=== PATIENT | female | born 1955 | race Caucasian/White ===

== ENCOUNTER → 2019-04-09 | Day surgery (SDC) | payer OTHER ==
--- NOTE | 2019-04-14 11:11 | PATH ---
Surgical Pathology Report Patient Name: [facility]. Rec. #: [id number] /Age/Gender: 1955 (Age: 64) / F Account: [id number] Location: Taken: 04/09/2019 Received: 04/09/2019 Reported: 04/14/2019 Physicians: Darlyn Freeman M.D. Specimen(s) Received A: RIGHT BREAST 11-12:00 RETRO CORE BIOPSY B: RIGHT AXILLARY LN CORE BIOPSY Clinical History Right breast 11-12 retro core biopsy Right axillary lymph node core biopsy Final Diagnosis A.. BREAST, RIGHT, 11-12:00 RETRO, SITE #1, CORE BIOPSY: INVASIVE DUCTAL CARCINOMA, POORLY DIFFERENTIATED, MEASURING AT LEAST 6 MM IN GREATEST DIMENSION. IN THIS MATERIAL. FOCAL DUCTAL CARCINOMA IN SITU (DCIS), SOLID TYPE, INTERMEDIATE NUCLEAR GRADE. B. AXILLARY LYMPH NODE, RIGHT, SITE #2, CORE BIOPSY: METASTATIC CARCINOMA, INVOLVING LYMPH NODE. Results of ER and ME studies performed on block A at [facility] are as follows: ER (clone [id number] mouse monoclonal antibody by [employer]): > 95 % nuclear staining with strong intensity (positive). ME (clone16 mouse monoclonal antibody by [employer]):1-2 % nuclear staining with moderate intensity (low positive). Results of Her2 (IHC) & Ki-67 studies performed on block A at [place], [place] ([id number] ) are as follows: Her2 IHC (EP3 from [employer], formerly known as [id number], using [employer] Polymer Refine detection kit):1+ (negative). Ki-67: ~40% (high proliferative index). Comment: Case discussed with on 04/13/19. Positive and negative controls (internal if applicable) show appropriate results. Electronically Signed Meghann Renee M.D. Gross Description A. received in formalin, labeled "right breast, 11-12 retro site #1" are five cores of light nina, yellow-nina, tissue, ranging from 0.5-1.0 cm in length with a diameter of 0.1 cm. Entirely submitted in one cassette. B. received in formalin, labeled "right axilla, biopsy site #2 " is a 1.7 x 1.3 x 0.2 cm aggregate of yellow-nina and light nina tissue admixed with blood clot. Entirely submitted in one cassette. Time to formalin fixation: 2 minutes Total formalin fixation time: Approximately 6 hours __ AE/04/09/2019 ebram/04/09/2019
== END | disposition home or self-care (01) ==
LOC: FRADUS-SUR 12:50
PROVIDERS: ATTEND Internal Medicine
PROC: 0HBU3ZX Excision of Left Breast, Percutaneous Approach, Diagnostic (ICD-10-PCS; principal; 2019-04-09)
PROC: 07B53ZX Excision of Right Axillary Lymphatic, Percutaneous Approach, Diagnostic (ICD-10-PCS; 2019-04-09)
PROC: BH47ZZZ Ultrasonography of Upper Extremity (ICD-10-PCS; 2019-04-09)
DX: C50.411 Malignant neoplasm of upper-outer quadrant of right female breast (principal); C77.3 Secondary and unspecified malignant neoplasm of axilla and upper limb lymph nodes; Z17.0 Estrogen receptor positive status [ER+]; N63.11 Unspecified lump in the right breast, upper outer quadrant; R59.9 Enlarged lymph nodes, unspecified
CPT/HCPCS: 19083; 76942-TC; 77065-TC; 87899; 88305-TC; 88342-TC; A4648

== ENCOUNTER 2019-06-10 09:09 | Day surgery (SDC) | payer OTHER ==
--- NOTE | 2019-06-07 13:55 | HP ---
Admitting History and Physical - Primary Care Physician PCP: William Ta - Admission Chief Complaint: right breast cancer History of Present Illness: Patient is a 64 yo female noted to have right retroareolar 2.9 cm mass as well as suspicious right axillary lymph nodes. The patient underwent a core bx 04/09 which was c/w invasive ductal ca/DCIS and positive metastatic axillary LN. The patient will require neoadjuvant chemo and is now presenting for insertion of port. History Source: Patient Limitations to Obtaining History: No Limitations - Past Medical History Psych: Yes: Depression Additional Past Medical History: h/o morbid obesity - Past Surgical History Past Surgical History: Yes: Breast Biopsy (left core bx (2008) left exc bx x 2 ( more then 30 yrs ago-benign)) Home Medications - Allergies Allergies/Adverse Reactions: Allergies Allergy/AdvReac Type Severity Reaction Status Date / Time Penicillins Allergy Mild unknown Unverified 09/08/12 17:38 - Home Medications Home Medications: Ambulatory Orders Multivitamin [Chewable-Isaac] 1 each PO DAILY 09/28/12 Cholecalciferol (Vitamin D3) [Vitamin D] 1,000 unit PO DAILY capsule 11/30/13 Cyanocobalamin (Vitamin B-12) [Vitamin B-12] 1,000 mcg PO DAILY tablet Family Medical History Family Hx Cancer: Mother (vaginal cancer) Other Family History: maternal sec cousin (breast cancer 50s) Review of Systems - Review of Systems Constitutional: reports: Other (fatigue) Physical Examination Constitutional: Yes: Well Nourished, Calm Breast(s): Yes: Other (Ptotic C-cup breasts with slight right nipple retraction. Right breast retroareolar mass noted on palpation which is approx 2.5 cm. No suspicious palpable axillary or any other adenopthy noted on exam.) Problem List - Problems (1) Breast cancer, right Code(s): C50.911 - MALIGNANT NEOPLASM OF UNSP SITE OF RIGHT FEMALE BREAST Qualifiers: Breast location: central portion of breast Estrogen receptor status: positive Patient sex: female Qualified Code(s): C50.111 - Malignant neoplasm of central portion of right female breast; Z17.0 - Estrogen receptor positive status [ER+] (2) Carcinoma of right breast metastatic to axillary lymph node Code(s): C50.911 - MALIGNANT NEOPLASM OF UNSP SITE OF RIGHT FEMALE BREAST; C77.3 - SEC AND UNSP MALIG NEOPLASM OF AXILLA AND UPPER LIMB NODES Assessment/Plan insertion of infusaport
[2019-06-08 17:29] VITALS: BMI 34.0
[2019-06-10] MEDS ORDERED: LIDOCAINE HCL 1%, 10 MG/ML (20ML VIAL) ONE (09:54)
[2019-06-10] MEDS ORDERED: KETOROLAC TROMETHAMINE 30 MG/1 ML VIAL IVPUSH PRN (11:43)
[2019-06-10] MEDS ORDERED: ONDANSETRON 4 MG/2 ML VIAL IVPUSH PRN ×2 (11:43→13:15)
[2019-06-10] MEDS ORDERED: DEXTROSE 5%-0.45% SALINE 1,000 ML IV SCH (11:45)
[2019-06-10] MEDS ORDERED: MIDAZOLAM HCL 2 MG/2 ML SINGLE DOSE VIAL ONE ×2 (11:47→12:14)
[2019-06-10] MEDS ORDERED: ceFAZolin SODIUM 1 GM VIAL ONE ×2 (12:12)
[2019-06-10] MEDS ORDERED: PROPOFOL 20 ML ONE (12:17)
[2019-06-10] MEDS ORDERED: LIDOCAINE HCL 1%, 10 MG/ML (20ML VIAL) INF ONE (12:52)
[2019-06-10] MEDS ORDERED: PROMETHAZINE HCL 25 MG/1 ML VIAL IVPUSH PRN (13:15)
[2019-06-10] MEDS ORDERED: oxyCODONE HCL 5 MG TABLET PO PRN ×2 (13:15)
[2019-06-10 14:38] VITALS: TEMP 97.7
[2019-06-10 15:04] VITALS: BP 134/72; PULSE 71
--- NOTE | 2019-06-10 15:37 | OP ---
DATE OF OPERATION: 06/10/2019 PREOPERATIVE DIAGNOSIS: Right breast cancer central location. POSTOPERATIVE DIAGNOSIS: Right breast cancer central location. PROCEDURE: Left-sided single-lumen Port-A-Cath placement under fluoroscopy for intravenous chemotherapy. PRIMARY SURGEON: Arely Long MD GOLD LEAF GILDER: BHUPENDRA Coronado COMPLICATIONS: There are no complications. INDICATIONS: Briefly, the patient is a 64-year-old nulliparous premenopausal female with [place], [place] descent. She has had some previous left breast biopsies, which have been benign. She underwent a mammography in March 2019, showing a central right breast retroareolar mass measuring about 2.9 cm confirmed to be about 2.8 cm on ultrasound with a suspicious lymph node. She underwent a right breast ultrasound-guided core biopsy and axillary lymph node biopsy on April 09, 2019, which showed a poorly differentiated invasive duct cancer, which was ER positive, MS weakly, HER2 negative with a Ki-67 of 40%. The patient also had a positive axillary lymph node. She was seen by medical oncology, and neoadjuvant chemotherapy was recommended. She started chemotherapy but requires a Port-A-Cath for IV access. The patient was brought in to [facility] through ambulatory surgery on June 10, 2019. In the holding area, site verification was made, and informed consent was obtained. She was brought into the operating room and laid on the OR table in a supine position. Venodynes were placed on the lower extremities. She received a gram of Ancef prior to incision. The patient was given IV sedation and had a rolled sheet placed under her midline spine. Her left arm was tucked at her side. The upper left chest wall was sterilely prepped and draped in the usual fashion. Time-out was performed. Once the patient was properly anesthetized, 1% lidocaine was given directly underneath the left clavicle. Intraoperative ultrasound was used, and the left subclavian vein was easily seen and was cannulated using the Seldinger technique under ultrasound guidance. The wire was placed into the left subclavian vein and into the superior vena cava under fluoroscopy. At this point, the infraclavicular pocket was fashioned by making about a 3-cm incision underneath the left clavicle, and an infraclavicular pocket was made using electrocautery for hemostasis. The catheter was cut to the appropriate length and attached to the Port-A-Cath chamber, and the chamber was placed into the infraclavicular pocket and secured in place using 2 separate 3-0 Prolene sutures. At this point, the Tear-Away sheath introduced with a dilator was placed over the wire under fluoroscopy into the superior vena cava, and the wire and the dilator were removed. The catheter was further down to the Tear-Away sheath, and the Tear-Away sheath was torn away leaving the catheter in good position in the superior vena cava. It had excellent blood return and was flushed with about 5 mL of dilute heparin at 10 units/mL. At this point, the Port-A-Cath chamber was accessed using a Silva needle, and 2 mL of concentrated heparin at 1000 units/mL were instilled into the Port-A-Cath chamber. The wound was then closed using interrupted 3-0 deep dermal Vicryl suture and a running, 4-0 subcuticular Biosyn suture. Mastisol and Steri-Strips were applied over the wound. Compressive dressing placed over this. The patient tolerated the procedure well without difficulty and was awake and alert and brought to the post anesthesia care unit postoperatively. Postoperative chest x-ray was performed, and the line may be used as soon as needed. The patient will be discharged home the same day once discharge criteria are met. All sponge and needle counts were correct at the end of the case, and estimated blood loss was minimal. ARELY LONG M.D. [id number]
== END 2019-06-10 15:07 | disposition home or self-care (01) ==
LOC: FASU 09:09
PROVIDERS: ATTEND Surgery Surgical Oncology
PROC: B518YZA Fluoroscopy of Superior Vena Cava using Other Contrast, Guidance (ICD-10-PCS; 2019-06-10)
PROC: 02HV33Z Insertion of Infusion Device into Superior Vena Cava, Percutaneous Approach (ICD-10-PCS; principal; 2019-06-10 12:14)
DX: C50.111 Malignant neoplasm of central portion of right female breast (principal); C77.3 Secondary and unspecified malignant neoplasm of axilla and upper limb lymph nodes; Z17.0 Estrogen receptor positive status [ER+]; Z80.3 Family history of malignant neoplasm of breast
CPT/HCPCS: 36561; 77001; C1788; 71045-TC-FY; 94760; J1644

== ENCOUNTER 2020-06-21 07:13 | Day surgery (SDC) | payer OTHER ==
[2020-06-19 11:14] VITALS: BMI 31.7
[2020-06-21] MEDS ORDERED: PHENYLEPHRINE 2.5% OPHTH SOLN 15 ML BOTTLE ONE (07:20)
[2020-06-21] MEDS ORDERED: TROPICAMIDE 1% OPHTH SOLN 15 ML BOTTLE ONE (07:20)
[2020-06-21] MEDS ORDERED: CYCLOPENTOLATE 2% OPHTH SOLN 2 ML BOTTLE ONE (07:20)
[2020-06-21] MEDS ORDERED: CIPROFLOXACIN 0.3% EYE DROPS 5 ML BOTTLE ONE (07:20)
[2020-06-21] MEDS ORDERED: LIDOCAINE 1% P/F 10 MG/ML VIAL ONE (07:21)
[2020-06-21] MEDS ORDERED: TETRACAINE 0.5% OPHTH SOLN 2 ML BOTTLE ONE ×2 (07:21→09:11)
[2020-06-21] MEDS ORDERED: NEO/POLYMYX B SULF/DEXAMETH OPHTHALMIC 5ML BOTTLE ONE (07:21)
[2020-06-21] MEDS ORDERED: BSS (NA/CA/MG/K) BALANCED SALT SOLUTION OPHTH SOLN 15 ML BOTTLE ONE (07:21)
[2020-06-21] MEDS ORDERED: CARBACHOL 0.01% INTRA-OCULAR 1.5 ML VIAL ONE (07:21)
[2020-06-21] MEDS ORDERED: MIDAZOLAM HCL 2 MG/2 ML SINGLE DOSE VIAL ONE ×2 (08:43→09:31)
[2020-06-21 09:37] VITALS: TEMP 97.8
[2020-06-21 10:21] VITALS: BP 124/73; PULSE 83
== END 2020-06-21 10:15 | disposition home or self-care (01) ==
LOC: FASU 07:13
PROVIDERS: ATTEND Ophthalmology
PROC: 08RJ3JZ Replacement of Right Lens with Synthetic Substitute, Percutaneous Approach (ICD-10-PCS; principal; 2020-06-21 08:50)
DX: H26.8 Other specified cataract (principal)

== ENCOUNTER 2020-07-24 06:24 | Day surgery (SDC) | payer OTHER ==
[2020-07-17 17:05] VITALS: BMI 31.7
[2020-07-24] MEDS: CIPROFLOXACIN 0.3% EYE DROPS 5 ML BOTTLE ONE ×3 (07:05→07:15)
[2020-07-24] MEDS: TROPICAMIDE 1% OPHTH SOLN 15 ML BOTTLE ONE ×3 (07:05→07:15)
[2020-07-24] MEDS: PHENYLEPHRINE 2.5% OPHTH SOLN 15 ML BOTTLE ONE ×3 (07:05→07:15)
[2020-07-24] MEDS: CYCLOPENTOLATE 2% OPHTH SOLN 2 ML BOTTLE ONE ×3 (07:05→07:15)
[2020-07-24] MEDS ORDERED: BSS (NA/CA/MG/K) BALANCED SALT SOLUTION OPHTH SOLN 15 ML BOTTLE ONE (07:17)
[2020-07-24] MEDS ORDERED: LIDOCAINE 1% P/F 10 MG/ML VIAL ONE (07:17)
[2020-07-24] MEDS ORDERED: TETRACAINE 0.5% OPHTH SOLN 2 ML BOTTLE ONE (07:17)
[2020-07-24] MEDS ORDERED: EPINEPHrine/PF 1 MG/1 ML (1:1,000) AMPULE ONE (07:17)
[2020-07-24] MEDS ORDERED: NEO/POLYMYX B SULF/DEXAMETH OPHTHALMIC 5ML BOTTLE ONE (07:18)
[2020-07-24] MEDS ORDERED: CARBACHOL 0.01% INTRA-OCULAR 1.5 ML VIAL ONE (07:18)
[2020-07-24] MEDS ORDERED: MIDAZOLAM HCL 2 MG/2 ML SINGLE DOSE VIAL ONE ×2 (08:11→08:19)
[2020-07-24 12:09] VITALS: TEMP 97.8
[2020-07-24 12:11] VITALS: BP 129/68; PULSE 74
== END 2020-07-24 09:40 | disposition home or self-care (01) ==
LOC: FASU 06:24
PROVIDERS: ATTEND Ophthalmology
PROC: 08RK3JZ Replacement of Left Lens with Synthetic Substitute, Percutaneous Approach (ICD-10-PCS; principal; 2020-07-24 08:19)
DX: H26.8 Other specified cataract (principal)

== ENCOUNTER 2021-02-21 07:36 | Day surgery (SDC) | payer OTHER ==
[2021-02-19 15:04] VITALS: BMI 33.5
[2021-02-21] MEDS ORDERED: PROPOFOL 20 ML ONE ×4 (07:38)
[2021-02-21 10:44] VITALS: BP 140/83; PULSE 73; TEMP 97.8
== END 2021-02-21 10:44 | disposition home or self-care (01) ==
LOC: FASU-ENDO 07:36
PROVIDERS: ATTEND Internal Medicine Gastroenterology
PROC: 0DB48ZX Excision of Esophagogastric Junction, Via Natural or Artificial Opening Endoscopic, Diagnostic (ICD-10-PCS; 2021-02-21)
PROC: 0DB68ZX Excision of Stomach, Via Natural or Artificial Opening Endoscopic, Diagnostic (ICD-10-PCS; 2021-02-21)
PROC: 0DJD8ZZ Inspection of Lower Intestinal Tract, Via Natural or Artificial Opening Endoscopic (ICD-10-PCS; principal; 2021-02-21 08:40)
DX: D50.9 Iron deficiency anemia, unspecified (principal); K29.50 Unspecified chronic gastritis without bleeding; K21.00 Gastro-esophageal reflux disease with esophagitis, without bleeding

== ENCOUNTER → 2021-06-18 | Day surgery (SDC) | payer OTHER | END | disposition home or self-care (01) | LOC: JRADIR 10:06 | PROVIDERS: ATTEND Internal Medicine | PROC: 0G9G3ZX Drainage of Left Thyroid Gland Lobe, Percutaneous Approach, Diagnostic (ICD-10-PCS; principal; 2021-06-18) | DX: E04.1 Nontoxic single thyroid nodule (principal) | CPT/HCPCS: 10005; 76942; 88173; 88305-TC ==